=== PATIENT | female | born 2000 | race Hispanic/Latino ===

== ENCOUNTER 2020-10-28 03:05 | Inpatient (IN) | payer MEDICAID ==
[2020-10-28] MEDS ORDERED: LACTATED RINGERS 1,000 ML ONE (05:49)
[2020-10-28] MEDS ORDERED: CARBOPROST TROMETHAMINE 250 MCG/1 ML INJ IM PRN (06:38)
[2020-10-28] MEDS ORDERED: ePHEDrine SULFATE 50 MG/1 ML INJ IV PRN ×2 (06:38→20:48)
[2020-10-28] MEDS ORDERED: miSOPROStol 200 MCG TAB PR PRN (06:38)
[2020-10-28] MEDS ORDERED: LOPERAMIDE 2 MG CAP PO PRN (06:38)
[2020-10-28] MEDS ORDERED: OXYTOCIN 10 UNIT/1 ML INJ IM PRN (06:38)
[2020-10-28] MEDS ORDERED: TERBUTALINE 1 MG/1 ML INJ SUB-Q PRN ×2 (06:38→08:49)
[2020-10-28] MEDS ORDERED: LIDOCAINE (2%) 20 MG/1 ML VIAL 20 ML MDV INFILTRATI NR (06:38)
[2020-10-28] MEDS ORDERED: LACTATED RINGERS 1,000 ML IV SCH ×2 (06:45→09:00)
[2020-10-28] MEDS ORDERED: BUTORPHANOL 2 MG/1 ML INJ IV PRN (07:00)
[2020-10-28] MEDS ORDERED: OXYTOCIN DRIP 30 UNITS/500 ML BAG IV SCH ×2 (07:00)
[2020-10-28] MEDS ORDERED: ACETAMINOPHEN 325 MG TAB PO PRN (07:00)
[2020-10-28] MEDS ORDERED: fentaNYL 100 MCG/2 ML INJ IV PRN (07:00)
[2020-10-28] MEDS ORDERED: NalbUPHINE 10 MG/1 ML INJ IV PRN (07:30)
[2020-10-28] MEDS ORDERED: METHYLERGONOVINE MALEATE 0.2 MG/ML VIAL IM PRN (07:30)
[2020-10-28] MEDS ORDERED: ONDANSETRON 4 MG/2 ML INJ IV PRN (07:30)
[2020-10-28] MEDS ORDERED: LIDOCAINE (2%) 20 MG/1 ML VIAL 20 ML MDV INFILTRATI ONE ×2 (08:49→22:12)
[2020-10-28 09:55] LABS: Hematocrit 33.4 % (30.3-42.9); Mean Corpuscular HGB Conc 33 % (30-34); Mean Corpuscular Volume 78 fl (79-97); Platelet Count 245 K/mm3 (140-440); Red Blood Count 4.26 M/mm3 (3.65-5.03); Red Cell Distribution Width 14.8 % (13.2-15.2)
--- NOTE | 2020-10-28 20:20 | History and Physical Report ---
History of Present Illness Date of examination: 10/28/20 Date of admission: 10/28/20 06:38 Chief complaint: I'm having contractions. History of present illness: Pt is a 20 year old at 40.3 weeks who presents with irregular contractions. [place] [facility] [place]. 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 She is GBS negative. Past History Past Medical History: no pertinent history Past Surgical History: no surgical history [employer] History: chlamydia, herpes Family/Genetic History: none Social history: - Obstetrical History Expected Date of Delivery: 10/24/20 Actual Gestation: 40 Week(s) 4 Day(s) : 2 Medications and Allergies Allergies Allergy/AdvReac Type Severity Reaction Status Date / Time No Known Allergies Allergy Verified 10/28/20 06:38 Active Meds: Active Medications Acetaminophen (Acetaminophen 325 Mg Tab) 650 mg PO Q4H PRN PRN Reason: Pain, Mild (1-3) Butorphanol Tartrate (Butorphanol 2 Mg/1 Ml Inj) 2 mg IV Q2H PRN PRN Reason: Pain , Severe (7-10) Carboprost Tromethamine (Carboprost Tromethamine 250 Mcg/1 Ml Inj) 250 mcg IM ONCE PRN PRN Reason: Uterine Bleeding Stop: 10/29/20 06:37 Ephedrine Sulfate (Ephedrine Sulfate 50 Mg/1 Ml Inj) 10 mg IV Q2M PRN PRN Reason: Hypotension Fentanyl (Fentanyl 100 Mcg/2 Ml Inj) 100 mcg IV Q2H PRN PRN Reason: Pain,Severe (7-10) LABOR PAIN Oxytocin/Sodium Chloride (Pitocin/Ns 30 Unit/500ml) 30 units in 500 mls @ 2 mls/hr IV TITR MEE; Protocol Last Titration: 10/28/20 13:30 Dose: 10 mls/hr, 10 mls/hr Documented by: Oxytocin/Sodium Chloride (Pitocin/Ns 30 Unit/500ml) 30 units in 500 mls @ 40 m ls/hr IV TITR MEE; Protocol Lactated Ringer's (Lactated Ringers) 1,000 mls @ 125 mls/hr IV DIRECT MEE Loperamide HCl (Loperamide 2 Mg Cap) 2 mg PO ONCE PRN PRN Reason: give with Hemabate Stop: 10/29/20 06:37 Methylergonovine Maleate (Methylergonovine Maleate 0.2 Mg/Ml Vial) 0.2 mg IM ONCE PRN PRN Reason: Uterine Bleeding Stop: 10/29/20 07:29 Mineral Oil (Mineral Oil 30 Ml Oral Liqd) 30 ml PO QHS PRN PRN Reason: Constipation Misoprostol (Misoprostol 200 Mcg Tab) 800 mcg TX ONCE PRN PRN Reason: Uterine Bleeding Stop: 10/29/20 06:37 Nalbuphine HCl (Nalbuphine 10 Mg/1 Ml Inj) 10 mg IV Q2H PRN PRN Reason: Pain, Moderate (4-6) Ondansetron HCl (Ondansetron 4 Mg/2 Ml Inj) 4 mg IV Q8H PRN PRN Reason: Nausea And Vomiting Oxytocin (Oxytocin 10 Unit/1 Ml Inj) 10 unit IM ONCE PRN PRN Reason: Uterine Bleeding Terbutaline Sulfate (Terbutaline 1 Mg/1 Ml Inj) 0.25 mg SUB-Q ONCE PRN PRN Reason: Hyperstimulation/Hypertonicity Stop: 10/29/20 08:48 Review of Systems All systems: negative Constitutional: weight gain, weakness Gastrointestinal: abdominal pain Genitourinary: contractions - Vital Signs Vital signs: Vital Signs Temp Pulse Resp BP 98.4 F 96 H 20 130/81 10/28/20 03:28 10/28/20 03:28 10/28/20 03:28 10/28/20 03:28 Temp Pulse Resp BP Pulse Ox 98.5 F 74 20 123/66 99 10/28/20 14:00 10/28/20 20:12 10/28/20 03:28 10/28/20 19:47 10/28/20 20:12 - Physical Exam Breasts: Cardiovascular: Regular rate, Normal S1, Normal S2 Lungs: Positive: Clear to auscultation, Normal air movement Abdomen: Positive: normal appearance, soft, normal bowel sounds. Negative: distention, tenderness Genitourinary (Female): Positive: normal external genitalia, normal perenium Vulva: both: normal Vagina: Positive: normal moisture. Negative: discharge Cervix: Negative: lesion, discharge Uterus: Positive: normal size, normal contour Adnexa: both: normal Anus/Rectum: Positive: normal perianal skin, heme negative. Negative: rectal mass, hemorrhoids Extremities: Deep Tendon Reflex Grade: Normal +2 - Obstetrical FHR: auscultation normal Cervical Dilatation: 2 Cervical Effacement Percentage: 60 station: -1 Uterine Contraction Pattern: Irregular Uterine Contraction Intensity: Moderate Results Result Diagrams: 10/28/20 08:56 Abnormal lab results 10/28/20 Range/Units 08:56 MCV 78 L (79-97) fl MCH 26 L (28-32) pg All other labs normal. Assessment and Plan IUP at 40.3 weeks in early labor. Pt to be admitted for labor augmentation with pitocin. Anticipate .
[2020-10-28] MEDS ORDERED: NALOXONE 2 MG/2 ML INJ IV PRN (20:48)
--- NOTE | 2020-10-28 20:49 | Anesthesia Consultation ---
Anesthesia Consult and Med Hx Date of service: 10/28/20 - Airway Anesthetic Teeth Evaluation: Good ROM Head & Neck: Adequate Mental/Hyoid Distance: Adequate Mallampati Class: Class II Intubation Access Assessment: Probably Good - Pulmonary Exam CTA: Yes - Cardiac Exam Cardiac Exam: RRR - Pre-Operative Health Status ASA Pre-Surgery Classification: ASA3 Proposed Anesthetic Plan: Epidural - Pulmonary Hx Asthma: No COPD: No Hx Pneumonia: No - Cardiovascular System Hx Hypertension: No - Central Nervous System Hx Seizures: No Hx Psychiatric Problems: No - Endocrine Hx Renal Disease: No Hx End Stage Renal Disease: No Hx Hypothyroidism: No Hx Hyperthyroidism: No - Hematic Hx Anemia: No - Other Systems Hx Alcohol Use: No Hx Obesity: Yes
--- NOTE | 2020-10-28 21:12 | Progress Note ---
Labor Epidural - Labor Epidural Start Time: 20:55 Stop Time: 21:00 Performed by:: CARA KANG Procedure: Patient is requesting epidural for labor pain. H&P, and labs reviewed. Procedure explained, questions answered, consent obtained. Patient in sitting position with blood pressure cuff and pulse ox on and working. Timeout performed immediately before start of procedure. Sterile chlorahexadine 0.5% prep/drape. 3 mL 1% lidocaine skin wheal at L[3]-L[4]. 18-gauge Photodigmtead epidural needle advanced to [id number] with saline at [7] cm. 27-gauge spinal needle advanced until clear, free-flowing CSF. Intrathecal dexmedetomidine [5] mcg administered and needle removed. Epidural catheter advanced to [12] cm, negative aspiration for blood and csf, negative test dose 3 ml 1.5% lidocaine with epinephrine. Sterile steri-strips and tegaderm applied, followed by tape reinforcement. Patient tolerated procedure well.
[2020-10-28] MEDS: fentaNYL-BUPIV 2 MCG/ML-0.125% 200 MCG/100 ML BAG EPIDURAL SCH (21:18)
[2020-10-28] MEDS ORDERED: MINERAL OIL 30 ML ORAL LIQD PO PRN ×2 (22:00)
[2020-10-29] MEDS: fentaNYL-BUPIV 2 MCG/ML-0.125% 200 MCG/100 ML BAG EPIDURAL SCH (04:54)
[2020-10-29] MEDS ORDERED: miSOPROStol 100 MCG TAB ONE (06:03)
--- NOTE | 2020-10-29 06:24 | Procedure Note ---
OB Delivery Note - Delivery Date of Delivery: 10/29/20 Surgeon: BRIDGETTE WALSH Estimated blood loss: 200cc - Vaginal Delivery presentation: vertex Delivery position: OA Intrapartum events: none Delivery induction: none Delivery augmentation: rupture of membranes, pitocin Delivery monitor: external FHT, external uterine Route of delivery: Delivery placenta: spontaneous Delivery cord: 3 umbilical vessels Delivery laceration: none Anesthesia: epidural Delivery comments: Viable female delivered over intact perineum with 1 push and nursing s taff present, and 5:42 AM. Weight 7 pounds 4 ounces 20 inches long with Apgars 8 and 9. had spontaneous cry was placed maternal abdomen. Cord was clamped and cut when done pulsating. Placenta was delivered spontaneously intact with three-vessel cord. There were no lacerations noted. Patient tolerated procedure well. - Infant A at 1 minute: 8 at 5 minutes: 9 Infant Gender: Female (7 pounds 4 ounces)
[2020-10-29] MEDS ORDERED: LANOLIN/ZINC/DIMETHICONE (LANSINOH) 7 GM TP PRN (11:00)
[2020-10-29] MEDS ORDERED: WITCH HAZEL/ GLYCERIN PAD TP PRN (11:00)
[2020-10-29] MEDS ORDERED: HYDROcodone/ACETAMINOPHEN 5-325 MG TAB PO PRN (11:00)
[2020-10-29] MEDS ORDERED: PROMETHAZINE 25 MG TAB PO PRN (11:00)
[2020-10-29] MEDS ORDERED: PROMETHAZINE 25 MG RECT SUPP PR PRN (11:00)
[2020-10-29] MEDS ORDERED: diphenhydrAMINE 25 MG CAP PO PRN (11:00)
[2020-10-29] MEDS ORDERED: ONDANSETRON 4 MG/2 ML INJ IV PRN (11:00)
[2020-10-29] MEDS: IBUPROFEN 600 MG TAB PO SCH ×3 (11:47→23:00)
[2020-10-29] MEDS: PRENATAL VIT27-FE FUMARATE-FOLIC ACID VIT TAB PO SCH (11:48)
[2020-10-29 17:16] LABS: Hematocrit 27.2 % (30.3-42.9)
[2020-10-29] MEDS: DOCUSATE SODIUM 100 MG CAP PO SCH ×2 (17:42→22:46)
--- NOTE | 2020-10-29 21:54 | Post Anesthesia Evaluation ---
- Post Anesthesia Evaluation Patient Participated: Yes Airway Patent: Yes Stable Respiratory Function: Yes Nausea/Vomiting: No Temp > 96.8F: Yes Pain Manageable: Yes Adequeate Hydration: Yes Anesthesia Complications: No Block Receding Appropriately: Yes
[2020-10-29] MEDS ORDERED: MAGNESIUM HYDROXIDE (MOM) ORAL LIQD UDC PO PRN (22:00)
[2020-10-30] MEDS: IBUPROFEN 600 MG TAB PO SCH (01:18)
[2020-10-30] MEDS: DOCUSATE SODIUM 100 MG CAP PO SCH (09:43)
[2020-10-30] MEDS: PRENATAL VIT27-FE FUMARATE-FOLIC ACID VIT TAB PO SCH (09:43)
[2020-10-30 16:47] VITALS: BP 127/77
--- NOTE | 2020-10-30 17:44 | Discharge Summary ---
Providers - Providers Date of Admission: 10/28/20 06:38 Date of discharge: 10/30/20 Attending physician: BRIDGETTE WALSH Primary care physician: BRIDGETTE WALSH Hospitalization Reason for admission: active labor Delivery: Procedure details: Please see delivery note Laceration: none Other procedures: none complications: none Discharge diagnosis: IUP at term delivered baby: female Hospital course: Pt was admitted in active labor and went on to have a spontaneous vaginal delivery which she tolerated well. Her course was uncomplicated and she met discharge criteria on PPD#1. She will follow up in [address] Walsh. Condition at discharge: Stable Disposition: DC-01 TO HOME OR SELFCARE - Discharge Diagnoses (1) Active labor at term Status: Acute (2) Term of female Status: Acute (3) Obesity Status: Acute Qualifiers: Obesity type: unspecified obesity type Obesity classification: adult class 2 (BMI 35 - 39.9) Serious obesity comorbidity presence: unspecified whether serious comorbidity present Body mass index: BMI 39.0-39.9 Qualified Code(s): E66.9 - Obesity, unspecified; Z68.39 - Body mass index [BMI] 39.0-39.9, adult (4) Anemia Status: Acute Qualifiers: Anemia type: unspecified type Qualified Code(s): D64.9 - Anemia, unspecified Plan - Discharge Medications Prescriptions: Ferrous Sulfate [Feosol 325 MG tab] 325 mg PO BID #60 tablet Ibuprofen [Motrin] 800 mg PO Q8HR PRN #40 tablet PRN Reason: Pain, Mild (1-3) HYDROcodone/APAP 5-325 [[place] 5/325] 1 each PO Q6HR PRN #15 tablet PRN Reason: Pain - Provider Discharge Summary Activity: routine, no sex for 6 weeks, no heavy lifting 4 weeks, no strenuous exercise Diet: routine Instructions: routine Additional instructions: [] Smoking cessation referral if applicable(refer to patient education folder for contact #) [] Refer to [facility] Booklet Call your doctor immediately for: * Fever > 100.5 * Heavy vaginal bleeding ( >1 pad per hour) * Severe persistent headache * Shortness of breath * Reddened, hot, painful area to leg or breast * Drainage or odor from incision. * Keep incision clean and dry at all times and follow doctor's instructions regarding bathing/showering - Follow up plan Follow up: BRIDGETTE WALSH MD [Primary Care Provider] - 11/26/20 (Please call to schedule your appt )
--- NOTE | 2020-10-30 17:44 | Progress Note ---
Assessment and Plan A: PPD#1 s/p at term Obesity P: Routine care. Discharge today with follow up in [address] Rutledge Subjective - Subjective Date of service: 10/30/20 Principal diagnosis: s/p at term, Obesity, Anemia Interval history: Pt without complaints. She is anxious to go home. Patient reports: appetite normal, voiding normally, pain well controlled, ambulating normally : doing well Objective - Vital Signs Latest vital signs: Vital Signs Temp Pulse Resp BP Pulse Ox 10/30/20 15:53 97.9 F 65 20 127/77 98 10/30/20 07:54 97.7 F 73 16 117/76 98 10/30/20 01:18 18 10/30/20 00:20 98.9 F 87 20 128/58 98 Intake and Output 10/30/20 10/30/20 10/30/20 06:59 14:59 22:59 Intake Total 480 Balance 480 Intake: Oral 480 Other: Total, Intake Amount 240 # Voids Void 1 - Exam Breasts: Present: deferred Abdomen: Present: soft (obese ) Uterus: Present: fundal height at umbilicus Extremities: Present: normal
== END 2020-10-30 20:30 | disposition home or self-care (01) | DRG 774 ==
LOC: TRG 03:05 → APU 03:16 → LD 06:38 → TRG 06:38 → OB 10-29 09:39
PROVIDERS: ADMIT Obstetrics & Gynecology; ATTEND Obstetrics & Gynecology
PROC: 00HU33Z Insertion of Infusion Device into Spinal Canal, Percutaneous Approach (ICD-10-PCS; 2020-10-28)
PROC: 3E0R3BZ Introduction of Anesthetic Agent into Spinal Canal, Percutaneous Approach (ICD-10-PCS; 2020-10-28)
PROC: 10E0XZZ Delivery of Products of Conception, External Approach (ICD-10-PCS; principal; 2020-10-29)
DX: O99.214 Obesity complicating childbirth (principal); O98.32 Other infections with a predominantly sexual mode of transmission complicating childbirth; Z3A.40 40 weeks gestation of pregnancy; Z37.0 Single live birth; E66.9 Obesity, unspecified; O90.81 Anemia of the puerperium; A60.09 Herpesviral infection of other urogenital tract; Z20.822 Contact with and (suspected) exposure to COVID-19; D64.9 Anemia, unspecified
CPT/HCPCS: 36415; 59025; 85014; 85018; 85027; 86592; 86850; 86900; 86901; 96360; 96361; 96374; 99211; G0378; A6250; G0463; J2405; J2590; J7120; U0003